=== PATIENT | female | born 1980 | race African-American/Black ===

== ENCOUNTER 2020-08-28 09:48 | Emergency (ER) | payer OTHER ==
[~2020-08-28] VITALS: Ht 167.6 cm; Wt 99.5 kg
[2020-08-28 09:56] VITALS: TEMP 98.1
[2020-08-28 10:16] LABS: BASO % 0.3 % (0.0-2.0); EOS # 0.1 (0.0-0.7); EOS % 1.3 % (0-4.0); GRAN # 5.3 (1.4-6.5); GRAN % 58.4 % (42.2-75.2); HEMATOCRIT 44.3 % (37.0-47.0); HEMOGLOBIN 14.2 g/dl (12.5-16.0); LYMPH # 3.1 (1.2-3.4); LYMPH % 33.8 % (20.0-51.0); MEAN CELL VOLUME 83 fl (80.0-100.0); MEAN CORPUSCULAR HEMOGLOBIN 27 pg (27.0-31.0); MEAN CORPUSCULAR HGB CONC 32 g/dl (33.0-37.0); MEAN PLATELET VOLUME 10.2 fl (7.4-10.4); MONO # 0.5 (0.1-0.6); MONO % 5.9 % (1.7-9.3); PLATELET COUNT 325 K/mm3 (130-400); RED BLOOD COUNT 5.33 M/mm3 (4.10-5.30); REDCELL DISTRIBUTION WIDTH-CV 14.5 % (11.5-14.5)
[2020-08-28] MEDS ORDERED: VITAMIN D31000 I1 PO (10:26)
[2020-08-28] MEDS ORDERED: MAGNESIUM200 MG PO (10:26)
[2020-08-28 10:27] LABS: ALBUMIN 4.3 gm/dL (3.5-5.0); BILIRUBIN,TOTAL 0.4 mg/dL (0.0-1.0); CALCIUM 9.5 mg/dL (8.4-10.2); CREATININE, serum 0.64 (0.52-1.25); POTASSIUM 4.4 mmol/L (3.4-5.0); TOTAL PROTEIN 8.1 gm/dL (6.4-8.2)
[2020-08-28] MEDS ORDERED: MASON NATURAL S1 CAP (10:27)
[2020-08-28 11:27] LABS: COLLECTION METHOD CLEAN CATCH
[2020-08-28 11:43] LABS: MUCOUS Present /lpf; PH 8 (5-8); URINE APPEARANCE Hazy; URINE BACTERIA None Seen /hpf; URINE BILIRUBIN Negative (NEGATIVE); URINE BLOOD Negative (NEGATIVE); URINE COLOR Yellow; URINE GLUCOSE Negative (NEGATIVE); URINE KETONE Negative (NEGATIVE); URINE LEUKOCYTE ESTERASE Trace (NEGATIVE); URINE NITRATE Negative (NEGATIVE); URINE PROTEIN(semi-quant) 1+ (NEGATIVE); URINE RBC 0-2 /hpf; URINE UROBILINOGEN Negative (NEGATIVE); URINE WBC 0-2 /hpf
[2020-08-28] MEDS ORDERED: NORCO 325 MG-51 TAB PO (12:29)
[2020-08-28 12:51] VITALS: BP 130/88; PULSE 84
== END 2020-08-28 12:52 | disposition home or self-care (01) ==
LOC: COL.ER 09:48
PROVIDERS: Nurse Practitioner Primary Care
DX: N85.8 Other specified noninflammatory disorders of uterus (principal)
CPT/HCPCS: J2270; Q9967

== ENCOUNTER → 2021-07-27 | Outpatient (CLI) | payer OTHER ==
[~2021-07-27] MED LIST: MAGNESIUM200 MG PO; MASON NATURAL S1 CAP; NORCO 325 MG-51 TAB PO; VITAMIN D31000 I1 PO
== END ==
LOC: MC.RAD 13:55
DX: N63.20 Unspecified lump in the left breast, unspecified quadrant (principal)